=== PATIENT | female | born 1975 | race Caucasian/White ===

== ENCOUNTER 2019-04-03 05:35 | Inpatient (IN) | payer MEDICAID ==
[~2019-04-03] VITALS: Ht 149.9 cm; Wt 66.1 kg
[~2019-04-03 05:35] MED LIST: CALC-75 PO; IRON1TAB74 PO; PREN-39 PO
[2019-04-03 06:18] VITALS: BP 118/76; PULSE 75; RESP 16; Ht 149.9 cm; Wt 66.1 kg
[2019-04-03] MEDS: LACTATED RINGER'S 1,000 ML IV SCH ×3 (06:27→14:45)
[2019-04-03] MEDS ORDERED: CEFAZOLIN 2 GM/50 ML (PMX) 50 ML IVPB SCH (06:30)
[2019-04-03] MEDS ORDERED: METHYLERGONOVINE 0.2 MG INJ IM PRN ×2 (06:30→08:30)
[2019-04-03] MEDS ORDERED: CARBOPROST 250 MCG INJ IM PRN ×2 (06:30→08:30)
[2019-04-03] MEDS ORDERED: OXYTOCIN 30 UNITS/LR 500 ML IV PRN ×2 (06:30→08:30)
[2019-04-03] MEDS ORDERED: MISOPROSTOL 200 MCG TAB PR PRN ×2 (06:30→08:30)
[2019-04-03] MEDS ORDERED: morphine SULFATE/PF (10 MG/10 ML) INJ ONE (07:19)
[2019-04-03] MEDS ORDERED: ONDANSETRON 4 MG INJ ONE (07:20)
[2019-04-03] MEDS ORDERED: METOCLOPRAMIDE 10 MG INJ ONE (07:20)
[2019-04-03] MEDS ORDERED: KETOROLAC 30 MG INJ ONE (07:20)
--- NOTE | 2019-04-03 07:22 | PREAC ---
Date/Time of Note Date/Time of Note DATE: 04/03/19 TIME: 07:21 Anesthesia Eval and Record Evaluation Time Pre-Procedure Interview DATE: 04/03/19 TIME: 07:21 Age 43 Sex female NPO: 8 hrs Preoperative diagnosis repeat c section Planned procedure c section Past Medical History Past Medical History: Includes : Gestational diabetes Surgery & Anesthesia Issues No known issue Meds Anticoagulation: No Beta Ev within 24 hr: No Reason Beta Ev not given: Pt. not on B-Ev Reported Medications Iron Bis-Gly/Fa/C/B12/Ca/Succ (IRON 21/ TABLET) 1 Each Tablet, 1 EACH PO DAILY 09/22/13 Calcium Carb/Vit D3/Minerals (CALCIUM 600 + D TABLET) 1 Each Tablet, 1 EACH PO DAILY 09/22/13 Vits W-Ca,Fe,Fa(<1MG) ( Vitamins) 1 Tab Tablet, 1 TAB PO DAILY 09/22/13 Current Medications Lactated Ringer's 1,000 ml @ 125 mls/hr Q8H IV Last administered on 04/03/19at 06:27; Admin Dose 125 MLS/HR; Start 04/03/19 at 06:20 Cefazolin Sodium/ Dextrose 50 ml @ 100 mls/hr ONCE IVPB ; Start 04/03/19 at 06:30 Oxytocin/Lactated Ringer's 500 ml @ 0 mls/hr ONCE PRN IV .VAGINAL BLEEDING; Start 04/03/19 at 06:30 Methylergonovine Maleate (Methergine) 0.2 mg ONCE PRN IM .VAGINAL BLEEDING; Start 04/03/19 at 06:30 Carboprost Tromethamine (Hemabate) 250 mcg ONCE PRN IM .VAGINAL BLEEDING; Start 04/03/19 at 06:30 Misoprostol (Cytotec) 1,000 mcg ONCE PRN OK .VAGINAL BLEEDING; Start 04/03/19 at 06:30 Meds reviewed: Yes Allergies Coded Allergies: No Known Allergy (Unverified , 09/22/13) Allergies Reviewed: Yes Labs/Studies Labs Reviewed: Reviewed by anesthesiologist Result Diagram: 04/03/19 0630 Laboratory Tests 04/03/19 06:30 test: Positive Studies: ECG (n/a), CXR (n/a) Pre-procedure Exam Last vitals Vital Signs Date Temp Pulse Resp B/P (MAP) Pulse Ox O2 O2 Flow FiO2 Time Delivery Rate 04/03/19 98.6 75 16 118/76 Room Air 06:18 (90) Airway: Adequate mouth opening Mallampati: Mallampati I Teeth: Normal Lung: Normal Heart: Normal ASA Physical Status ASA physical status: 2 Emergency: None Planned Anesthetic Neuraxial: Spinal Planned Pain Management Sub-arachniod narcotics Pre-operative Attestations Prior to commencing anesthesia and surgery, the patient was re-evaluated, there was verification of: *The patient's identity *The results of appropriate recent lab work and preoperative vital signs *The above evaluation not changing prior to induction *Anesthetic plan, risk benefits, alternative and complications discussed with patient/family; questions answered; patient/family understands, accepts and wishes to proceed. ABIGAIL JAUREGUI MD April 03, 2019 07:22
--- NOTE | 2019-04-03 07:49 | PREOPHP ---
DATE OF ADMISSION: 04/03/2019 HISTORY OF PRESENT ILLNESS: Ms. Laura Hutchinson is a 43-year-old 2, para 1, EDC 04/07/2019 int rauterine at 39 weeks gestational age, admitted today for elective repeat delivery with tubal sterilization. She denies any contractions, vaginal bleeding, or discharge. Her [facility] care took place at [facility]. PAST MEDICAL HISTORY: None. MEDICATIONS: vitamins. PAST SURGICAL HISTORY: Times 1 previous section. OBSTETRIC HISTORY: Times 1 previous section. GYNECOLOGIC HISTORY: 10, regular 3 to 4 days. Denies any sexually transmitted infection. Sexually active with 1 partner. SOCIAL HISTORY: Denies any smoking, drugs or alcohol. FAMILY HISTORY: None. REVIEW OF SYSTEMS: All within normal except history of present illness. PHYSICAL EXAMINATION: HEENT: Within normal. LUNGS: CTA bilateral. CARDIOVASCULAR: S1, S2, regular rhythm. ABDOMEN: Gravid, nontender. Negative CVA bilateral. EXTREMITIES: Negative edema. No calf tenderness. PELVIC: Vaginal exam deferred. heart tracing category 1. [place]: Occasional contractions. ASSESSMENT: Intrauterine at 39 weeks gestational age, advanced maternal age, previous C-se ction x1, desires elective repeat delivery. Declined vaginal after . PLAN: Consent for repeat delivery with bilateral tubal sterilization. Risks, benefits and alternatives explained. All questions were answered. Dictated By: JUANPABLO YOUNG/GABBY Conf#: [id number] DID#: [id number]
[2019-04-03] MEDS ORDERED: EPHEDrine 25 MG/5 ML SYG ONE (08:14)
[2019-04-03] MEDS ORDERED: PHENYLephrine (100 MCG/ML) 10ML SYG ONE (08:14)
[2019-04-03] MEDS ORDERED: OXYTOCIN 30 UNITS/LR 500 ML IV ONE (08:18)
[2019-04-03] MEDS ORDERED: OXYTOCIN 30 UNITS/LR 500 ML IV SCH (08:21)
--- NOTE | 2019-04-03 08:21 | OPPN ---
Date/Time of Note Date/Time of Note DATE: 04/03/19 TIME: 08:19 Operative Report Planned Procedure Procedure date April 03, 2019 Procedure(s) repeat low transverse CD with bilateral tubal salpingectomy Performed by see signature line Metal Baler: KRISTINA CAN MD 2nd Metal Baler none Anesthesiologist: ABIGAIL JAUREGUI MD Pre-procedure diagnosis Intrauterine at 39 weeks gestational age, advanced maternal age, previous x1, desires elective repeat delivery. Declined vaginal after . [id number] Anesthesia Type: Uikvs0l spinal Post-Procedure Post-procedure diagnosis Intrauterine at 39 weeks gestational age, advanced maternal age, previous x1, desires elective repeat delivery. Declined vaginal after . Findings a viable male 9/9 weight 7lb 14 oz. normal uterus tubes and ovaries Estimated Blood Loss: 500 - 600 mls (500) Specimen(s) portion of right and left fallopian tube Grafts/Implant(s) none Complication(s) none JUANPABLO RICHTER MD April 03, 2019 08:21
[2019-04-03] MEDS ORDERED: OXYCODONE/ACETAMINOPHEN (5/325) TAB PO PRN (08:30)
[2019-04-03] MEDS ORDERED: NACL 0.9% 3 ML SYG IV SCH (08:30)
[2019-04-03] MEDS ORDERED: KETOROLAC 30 MG INJ IV PRN (11:00)
[2019-04-03] MEDS ORDERED: NALOXONE (0.4 MG/ML) INJ IV PRN (11:00)
[2019-04-03] MEDS ORDERED: morphine 2 MG INJ IV PRN ×6 (11:00)
[2019-04-03] MEDS ORDERED: DIPHENHYDRAMINE 50 MG INJ IV PRN (11:00)
[2019-04-03] MEDS ORDERED: ONDANSETRON 4 MG INJ IV PRN ×2 (11:00)
[2019-04-03] MEDS ORDERED: MEPERIDINE 25 MG INJ IV PRN (11:00)
[2019-04-03 12:00] VITALS: BP 131/76; PULSE 89; RESP 17
[2019-04-03] MEDS: IBUPROFEN 600 MG TAB PO SCH ×2 (12:00→16:45)
[2019-04-03 12:30] VITALS: BP 133/79; PULSE 89; RESP 17
[2019-04-03] MEDS: CEFAZOLIN 2 GM/50 ML (PMX) 50 ML IVPB SCH ×3 (14:45→23:13)
[2019-04-03 16:00] VITALS: BP 131/78; PULSE 83; RESP 18
--- NOTE | 2019-04-03 17:31 | PAC ---
Date/Time of Note Date/Time of Note DATE: 04/03/19 TIME: 17:31 Post-Anesthesia Notes Post-Anesthesia Note Last documented vital signs Vital Signs Date Temp Pulse Resp B/P (MAP) Pulse Ox O2 O2 Flow FiO2 Time Delivery Rate 04/03/19 99.0 83 18 131/78 97 Room Air 16:00 (95) 04/03/19 97 12:30 Activity: WNL Respiratory function: WNL Cardiovascular function: WNL Mental status: Baseline Pain reasonably controlled: Yes Hydration appropriate: Yes Nausea/Vomiting absent: No ABIGAIL JAUREGUI MD April 03, 2019 17:31
[2019-04-03 20:30] VITALS: BP 135/76; PULSE 74; RESP 18
[2019-04-04] VITALS: BP 128/72; PULSE 70; RESP 18
[2019-04-04] MEDS: KETOROLAC 30 MG INJ IV PRN ×2 (03:54→08:45)
[2019-04-04 04:00] VITALS: BP 119/62; PULSE 96; RESP 18
[2019-04-04] MEDS: IBUPROFEN 600 MG TAB PO SCH ×5 (06:00→23:56)
[2019-04-04] MEDS: CEFAZOLIN 2 GM/50 ML (PMX) 50 ML IVPB SCH (06:18)
--- NOTE | 2019-04-04 06:59 | OPPN ---
Date/Time of Note Date/Time of Note DATE: 04/04/19 TIME: 06:58 Anesthesia Follow up Anesthesia Follow up Last documented vital signs Vital Signs Date Temp Pulse Resp B/P (MAP) Pulse Ox O2 O2 Flow FiO2 Time Delivery Rate 04/04/19 98.2 96 18 119/62 Room Air 04:00 (81) 04/04/19 99 00:00 Respiratory function: WNL Cardiovascular function: WNL Comments a 43 year post duramorph for post op pain POD #1 is fine . No itching, N/V/ headache, neural deficit.Pain is controlled ABIGAIL JAUREGUI MD April 04, 2019 06:59
[2019-04-04] MEDS: OXYCODONE/ACETAMINOPHEN (5/325) TAB PO PRN ×2 (14:13→20:28)
[2019-04-04 15:40] VITALS: BP 126/76; PULSE 61; RESP 18
--- NOTE | 2019-04-04 18:56 | QN ---
Documentation Comment progress note pod 1 patient seen and evaluated no complaints vs stable afebrile ab dressing clean/dry no distention extremity no edema no calf tenderness a/ sp cd pod 1 stable afebrile p/ iron supplement encourage ambulation JUANPABLO RICHTER MD April 04, 2019 18:56
[2019-04-04 20:00] VITALS: BP 120/54; PULSE 72; RESP 20
[2019-04-04] MEDS: FERROUS SULFATE (EC) 325 MG TAB PO SCH (20:27)
[2019-04-05 03:46] VITALS: BP 122/64; PULSE 74; RESP 20
[2019-04-05] MEDS: IBUPROFEN 600 MG TAB PO SCH ×4 (05:14→23:59)
[2019-04-05 08:30] VITALS: BP 117/72; PULSE 72; RESP 16
--- NOTE | 2019-04-05 08:39 | OPR ---
DATE OF OPERATION: 04/03/2019 PREOPERATIVE DIAGNOSES: Intrauterine at 39 weeks gestational age, previous delive ry, desires elective repeat delivery with bilateral tubal sterilization. POSTOPERATIVE DIAGNOSES: Intrauterine at 39 weeks gestation age, previous deliver y, desires elective repeat delivery with bilateral tubal sterilization. OPERATION PERFORMED: Repeat low transverse delivery with bilateral tubal salpingectomy. SURGEON: Jacobo Penaloza MD PACKING CHECKER: Dr. Ever Jeffery. ANESTHESIA: Spinal. COMPLICATIONS: None. ESTIMATED BLOOD LOSS: 500 mL. FINDINGS: A viable male, 9 and 9 respectively at 1 and 5 minutes, weight 7 pounds 14 ounces. Normal uterus, tubes and ovaries. PATHOLOGY: Right and left fallopian tube. DESCRIPTION OF PROCEDURE: After explaining the risks, benefits and alternatives and patient consent signed in chart, the patient was taken to the operating room where spinal anesthesia was found to be adequate. She was then prepared and draped in a normal sterile fashion in dorsal supine position wit h a leftward tilt. A Pfannenstiel skin incision was then made with the scalpel and carried to the un derlying of the fascia. The fascia was incised in midline and the incision extended laterally with M caity scissors. The superior aspect of the fascial incision was grasped with curved clamps, elevated a nd the underlying rectus muscles dissected bluntly. Attention was then turned to which in cecy lar fashion was grasped, tented up with curved clamps and rectus muscle bluntly. The rectus mus cles were in midline, peritoneum identified, tented up and entered sharply with Metzenbaum scissors. The peritoneal incision was extended superiorly with good visualization of bladder. The b ladder blade was then inserted and the lower uterine segment incised in a transverse fashion with the scalpel. The uterine incision was extended laterally. The bladder blade was removed and the 's head delivered atraumatically. The nose and mouth were suctioned and cord clamped and cut. The i nfant was handed off to waiting watchstander. The placenta was then removed. The uterus exteriorize d and cleared of all clots and debris. The uterine incision was repaired with 1-0 chromic in a runni ng locked fashion. A second layer of same suture was used to make an imbrication . At this poi nt, the right fallopian tube was identified and a Archie clamp was used to grasp the left fallopian tube. The left fallopian tube was ligated with a 2-0 plain gut x2 and excised. Good hemostasis was noted. Similarly, the left fallopian tube was ligated and excised. At this point, the uterus was re turned to the abdomen. The gutters were cleared of all clots. The peritoneum and rectus abdominis m uscles were reapproximated with 2-0 Vicryl in an interrupted fashion. The fascia was reapproximated with 0 Vicryl in a running fashion. The subcutaneous tissue was reapproximated with 2-0 plain gut in running fashion. The skin was closed with ras. The patient tolerated the procedure well. All counts were correct. The patient was taken to recovery room in stable condition. Dictated By: JACOBO YOUNG/GABBY Conf#: [id number] DID#: [id number]
[2019-04-05] MEDS: FERROUS SULFATE (EC) 325 MG TAB PO SCH ×2 (09:33→22:29)
[2019-04-05] MEDS ORDERED: BISACODYL 10 MG SUPP PR ONE (11:00)
--- NOTE | 2019-04-05 11:00 | QN ---
Documentation Comment progress note pod 2 patient seen and evaluated no complaints vs stable afebrile ab c/d/i no distention no distention extremity no edema no calf tenderness a/ sp cd pod 2 stable afebrile p/ discharge home tomorrow f/u office in 2 weeks JUANPABLO RICHTER MD April 05, 2019 11:00
--- NOTE | 2019-04-05 11:04 | PD.PPDC ---
BAND SPLICER Discharge Instruction Condition [id number] Patient Condition: Mbkgx4r Fair Diet Mhvbv3Ko Diet: Cpvbu5s Resume Regular Diet Activity/Restrictions Hjujd3Ac Activity: Cjfcm1s Normal Activity May Shower [id number] Restrictions: Apxnr9q No Exercising No Lifting No Driving No Sexual Activity Nothing in the Vagina No Lantana No Tampons, douche Follow-up Follow-up with Physician: 2, Week/Weeks Return to clinic for Vyrbf1Sq YARD ATTENDANT Instructions: Gvxcd1q Fever greater than 101 Chills Worsening abdominal pain Excessive Vaginal Bleeding More than 2 pads per hour Unable to tolerate diet Jlsus9Sa OB Instructions: Nevkw3d Breast Tenderness Depression Blurried Vision Headache Yfsnc3Bi Surgical Instructions: Glmar2p Incisional Drainage Incisional Redness JUANPABLO RICHTER MD April 05, 2019 11:04
[2019-04-05] MEDS: SENNA TAB PO PRN ×2 (11:55→22:29)
[2019-04-05 16:00] VITALS: BP 118/64; PULSE 84; RESP 18
[2019-04-05 19:45] VITALS: BP 118/66; PULSE 84; RESP 17
[2019-04-05] MEDS: OXYCODONE/ACETAMINOPHEN (5/325) TAB PO PRN (22:35)
--- NOTE | 2019-04-06 02:44 | DS ---
DATE OF ADMISSION: 04/03/2019 DATE OF DISCHARGE: 04/06/2019 PRIMARY DIAGNOSES: 1. Intrauterine at 39 weeks gestational age. 2. Previous . 3. Desires elective repeat delivery with bilateral tubal sterilization. PROCEDURE: Repeat low transverse delivery with bilateral tubal salpingectomy. CONDITION ON DISCHARGE: Stable. ACTIVITY: None per vagina, no lifting x6 weeks. DIET: Regular. MEDICATIONS ON DISCHARGE: 1. Motrin. 2. Iron. 3. Colace. DISCHARGE SUMMARY: Ms. Hutchinson underwent a repeat delivery with bilateral tubal sterilization on 04/03/2019. She had a viable male, 9 and 9 respectively at 1 and 5 minutes, weight 7 pound s 14 ounces. She had uneventful postop day 1 and 2. She had absorbable ras. She will follow up in the office in 2 weeks for /postop care. Dictated By: JUANPABLO YOUNG/GABBY Conf#: [id number] DID#: [id number]
[2019-04-06 03:54] VITALS: BP 126/59; PULSE 70; RESP 17
[2019-04-06] MEDS: IBUPROFEN 600 MG TAB PO SCH ×2 (05:52→12:29)
[2019-04-06 08:00] VITALS: BP 112/69; PULSE 68; RESP 18
[2019-04-06] MEDS: FERROUS SULFATE (EC) 325 MG TAB PO SCH (10:40)
--- NOTE | 2019-04-07 15:02 | DELSUM ---
Delivery Summary A-C Datetime Report Generated by CPN: 04/07/2019 15:02 DELIVERY PERSONNEL Utility Division Project Manager: Rod, Cary MATERNAL INFORMATION Delivery Anesthesia: Spinal Medications in Delivery: 2 GM ANCEF Delivery QBL (ml): 500 Placenta Cultured: No Maternal Complications: None LABOR SUMMARY EDC: 04/07/2019 00:00 No. Babies in Womb: 1 Attempted: No Labor Anesthesia: None LABOR INFORMATION Reason for Induction: Not Applicable Oxytocin: N/A Group B Beta Strep: UNKNOWN Antibiotics # of Doses: 0 Steroids Given: None Reason Steroids Not Administered: Not Applicable MEMBRANES Membranes Rupture Method: Artificial Rupture of Membranes: 04/03/2019 07:52 Length of Rupture (hr): 0.00 Amniotic Fluid Color: Clear Amniotic Fluid Amount: Moderate Amniotic Fluid Odor: None STAGES OF LABOR Stage 3 hr: 0 Stage 3 min: 1 CSECTION DELIVERY Primary Indication: Repeat Elective CSection Urgency: Elective CSection Incidence: Repeat Labor: No Labor Elective: Elective CSection Incision: Lower Uterine Transverse Sterilization Procedure: Diana BABY A INFORMATION Infant Delivery Date/Time: 04/03/2019 07:52 Method of Delivery: Born in Route : No : N/A Forceps: N/A Vacuum Extraction: N/A Shoulder Dystocia : N/A SHOULDER DYSTOCIA BABY A Infant Delivery Date/Time: 04/03/2019 07:52 PRESENTATION/POSITION BABY A Presentation: Cephalic Cephalic Presentation: Vertex Vertex Position: Left Occipital Anterior Breech Presentation: N/A PLACENTA INFORMATION BABY A Placenta Delivery Time : 04/03/2019 07:53 Placenta Method of Delivery: Manual Removal Placenta Status: Delivered SCORES BABY A Heart Rate 1 min: >100 bpm Resp Effort 1 min: Good Cry Reflex Irritability 1 min: Cough/Sneeze/Pulls Away Muscle Tone 1 min: Active Motion Color 1 min: Body [place], Extremit Blue Resuscitation Effort 1 min: Tactile Stimulation SCORE 1 MIN: 9 Heart Rate 5 min: >100 bpm Resp Effort 5 min: Good Cry Reflex Irritability 5 min: Cough/Sneeze/Pulls Away Muscle Tone 5 min: Active Motion Color 5 min: Body [place], Extremit Blue Resuscitation Effort 5 min: Tactile Stimulation SCORE 5 MIN: 9 INFORMATION BABY A Gestational Age at Delivery: 39.3 Gestational Status: Full Term- 39- 40.6 Weeks Outcome : Liveborn Infant Condition : Stable Sex: Male IDENTIFICATION/MEDS BABY A ID Band Number: [id number] ID Band Location: Right Leg; Left Arm Sensor Applied: No Sensor Number: [id number] Sensor Location : Cord Clamp Vitamin K Given : Not Given Erythromycin Given: Not Given WEIGHT/LENGTH BABY A Birthweight (gm): 3575 Weight (lb): 7 Infant Weight (oz): 14 Infant Length (in): 19.50 Infant Length (cm): 49.53 CORD INFORMATION BABY A No. Cord Vessels: 3 Nuchal Cord : N/A Cord Blood Taken: Yes Infant Suction: Mouth; Nose ASSESSMENT BABY A Infant Complications: None Physical Findings at Delivery: Within Normal Limits Infant Respirations: Appears Normal Qm Consultant/ALS Called : Yes Care By: SANDRA RN AND GINGER RT Transferred To: Remains with Mother
== END 2019-04-06 13:50 | disposition home or self-care (01) | DRG 785 ==
LOC: L-D 05:35 → PP1 11:55 → EDSTATUS 04-07 01:15
PROVIDERS: ADMIT Obstetrics & Gynecology; ATTEND Obstetrics & Gynecology
PROC: 10D00Z1 Extraction of Products of Conception, Low, Open Approach (ICD-10-PCS; principal; 2019-04-04)
PROC: 0UB70ZZ Excision of Bilateral Fallopian Tubes, Open Approach (ICD-10-PCS; 2019-04-04)
DX: O24.429 Gestational diabetes mellitus in childbirth, unspecified control (principal); O34.211 Maternal care for low transverse scar from previous cesarean delivery; Z3A.39 39 weeks gestation of pregnancy; Z37.0 Single live birth; Z30.2 Encounter for sterilization
CPT/HCPCS: 85025; 85610; 85730; 86592; 86850; 86900; 86901; 87340; 88302; 99464; J0690; J1885; J2210; J2274; J2370; J2405; J2590; J2765; J7120